=== PATIENT | female | born 1945 | race African-American/Black ===

== ENCOUNTER 2017-11-14 21:26 | Emergency (ER) | payer MEDICARE, MEDICAID ==
[~2017-11-14] VITALS: Ht 165.1 cm; Wt 79.0 kg
[~2017-11-14 21:26] MED LIST: ASPI-1159 PO; CEPH500C2 PO; FOLI-43 PO; FOLIC ACID PO; FURO-151 PO; GABA-290 PO; HUM10VIA6 SQ; HYDR25TA PO; INSU3INS8 SQ; KDUR20 PO; LOSA50TA20 PO; METF500T6 PO; NIFE60TA78 PO; RANI150T7 PO
[2017-11-14] MEDS ORDERED: HYDROCODONE/ACETAMINOPHEN 10/325MG TABLET PO ONE (23:00)
[2017-11-14] MEDS ORDERED: CEPHALEXIN 500MG CAPSULE PO ONE (23:00)
[2017-11-15] MEDS ORDERED: ALBUTEROL (0.083%) 2.5MG/3ML NEB HHN ONE (00:15)
[2017-11-15 01:03] VITALS: BP 165/98
== END 2017-11-15 01:36 | disposition home or self-care (01) ==
LOC: ER 21:26
DX: L03.115 Cellulitis of right lower limb (principal); J44.9 Chronic obstructive pulmonary disease, unspecified; E11.9 Type 2 diabetes mellitus without complications; I10 Essential (primary) hypertension; G62.9 Polyneuropathy, unspecified; F17.200 Nicotine dependence, unspecified, uncomplicated; Z96.653 Presence of artificial knee joint, bilateral; Z88.1 Allergy status to other antibiotic agents; Z88.2 Allergy status to sulfonamides; Z79.82 Long term (current) use of aspirin; Z79.899 Other long term (current) drug therapy
CPT/HCPCS: 94640; 99283; J7611

== ENCOUNTER 2017-11-18 19:10 | Emergency (ER) | payer MEDICARE, MEDICAID ==
[~2017-11-18] VITALS: Ht 162.6 cm; Wt 76.7 kg
[2017-11-18] MEDS ORDERED: ASPIRIN 325MG EC TABLET PO ONE (20:00)
[2017-11-18 20:02] LABS: BASOPHILS % 0.6 % (0.0-2.0); EOSINOPHILS % 3.5 % (0.0-5.0); HEMATOCRIT. 39.4 % (36.0-48.0); MEAN CORPUSCULAR HEMOGLOBIN 27.1 pg (28.0-32.0); MEAN CORPUSCULAR VOLUME 82.4 fL (81.0-99.0); MEAN PLATELET VOLUME 7.7 fl (7.4-10.4); MONOCYTES % 9.8 % (2.0-8.0); NEUTROPHILS % 69.1 % (40.0-76.0); PLATELET 283 x1000/uL (130-400); RED BLOOD CELL COUNT 4.78 mill/uL (4.2-5.4); RED CELL DISTRIBUTION WIDTH 15.9 % (11.6-14.6)
[2017-11-18 20:09] LABS: CHLORIDE 104 mEq/L (98-107)
[2017-11-18 20:13] LABS: ETHANOL BLOOD < 10 mg/dL
[2017-11-18 20:16] LABS: LDL CHOLESTEROL 100 mg/dL (5-100)
[2017-11-18 20:25] LABS: INR 1.1; PROTHROMBIN TIME 11.9 sec (9.4-11.6)
[2017-11-18] MEDS ORDERED: POTASSIUM CHLORIDE 20MEQ TABLET SR PO NR (20:30)
[2017-11-18 20:45] VITALS: BP 195/112
== END 2017-11-18 20:45 | disposition left against medical advice (07) ==
LOC: ER 19:10 → CANBEDREQ 22:20
DX: R47.01 Aphasia (principal); I16.0 Hypertensive urgency; E87.6 Hypokalemia; J44.9 Chronic obstructive pulmonary disease, unspecified; E11.9 Type 2 diabetes mellitus without complications; I10 Essential (primary) hypertension; Z88.8 Allergy status to other drugs, medicaments and biological substances; Z79.4 Long term (current) use of insulin; Z79.82 Long term (current) use of aspirin
CPT/HCPCS: 36415; 70450; 80053; 83605; 83721; 84484; 85025; 85610; 93005; 99291; G0482

== ENCOUNTER 2023-05-20 18:32 | Emergency (ER) | payer MEDICARE, MEDICAID ==
[~2023-05-20] VITALS: Ht 162.6 cm; Wt 64.0 kg
[~2023-05-20 18:32] MED LIST changes: +APIX5TAB MT; -ASPI-1159 PO; +ASPI-1497 PO; -CEPH500C2 PO; +FAMO20TA8 MT; -FOLIC ACID PO; -HYDR25TA PO; -LOSA50TA20 PO; +METF-414 PO; -METF500T6 PO; +NIFE-49 PO; -NIFE60TA78 PO; -RANI150T7 PO
[2023-05-20 18:38] VITALS: O2SAT 98
[2023-05-20 19:56] LABS: BASOPHILS % 0.5 % (0.0-2.0); EOSINOPHILS % 5.6 % (0.0-5.0); HEMATOCRIT. 36.5 % (36.0-48.0); HEMOGLOBIN. 12.3 g/dL (12.0-16.0); MEAN CORPUSCULAR HEMOGLOBIN 30.3 pg (28.0-32.0); MEAN CORPUSCULAR HGB CONC 33.8 g/dL (31.0-37.0); MEAN CORPUSCULAR VOLUME 89.8 fL (81.0-99.0); MEAN PLATELET VOLUME 7.1 fl (7.4-10.4); MONOCYTES % 10.6 % (2.0-8.0); NEUTROPHILS % 59.3 % (40.0-76.0); PLATELET 242 x1000/uL (130-400); RED BLOOD CELL COUNT 4.06 mill/uL (4.2-5.4); RED CELL DISTRIBUTION WIDTH 16.3 % (11.6-14.6); WHITE BLOOD COUNT 6.7 x1000/uL (4.5-11.0)
[2023-05-20 20:06] LABS: ALANINE AMINOTRANSFERASE 9 IU/L (10-49); ALBUMIN 3.8 g/dL (3.2-4.8); ASPARTATE AMINOTRANSFERASE 16 IU/L (<34); BILIRUBIN TOTAL 0.3 mg/dL (0.1-1.0); CALCIUM 9.6 mg/dL (8.7-10.4); CARBON DIOXIDE 18 mEq/L (21-32); CHLORIDE 114 mEq/L (98-107); CREATININE 1.7 mg/dL (0.6-1.0); GLUCOSE 108 mg/dL (70-105); POTASSIUM 4.7 mEq/L (3.5-5.1); PROTEIN TOTAL 7.3 g/dL (6.0-8.3); SODIUM 141 mEq/L (136-145); UREA NITROGEN BLOOD 59 mg/dL (9-23)
[2023-05-20] MEDS ORDERED: IPRATROPIUM/ALBUTEROL 0.5-3(2.5)MG/3ML NEB HHN PRN (22:45)
[2023-05-20] MEDS ORDERED: ACETAMINOPHEN 325MG TABLET PO PRN ×2 (22:45)
[2023-05-20] MEDS ORDERED: ONDANSETRON HCL 4MG/2ML INJ IV PRN (22:45)
[2023-05-20] MEDS ORDERED: CLONIDINE 0.1MG TABLET PO PRN (22:45)
[2023-05-20] MEDS ORDERED: IOHEXOL-350 100 ML BOTTLE ONE (23:00)
[2023-05-20 23:14] LABS: CHOLESTEROL 141 mg/dL (<200); FERRITIN 53 ng/mL (10-291); FOLIC ACID (FOLATE) SERUM 11.63 ng/mL (>5.38); HDL CHOLESTEROL 44 mg/dL (>65); IRON 47 ug/dL (50-170); LDL CHOLESTEROL 72 mg/dL (5-100); PHOSPHORUS 3.8 mg/dL (2.5-4.9); T4 FREE 1.05 ng/dL (0.89-1.76); THYROID STIMULATING HORMONE 0.74 uIU/mL (0.55-4.78); TOTAL IRON BINDING CAPACITY 224 ug/dl (250-425); TRIGLYCERIDE 97 mg/dL (0-150); TROPONIN I HIGH SENSITIVITY 8 ng/L (3.0-34); VITAMIN B12 SERUM 503 pg/mL (211-911)
[2023-05-20] MEDS ORDERED: HYDROCODONE/ACETAMINOPHEN 5/325MG TABLET PO ONE (23:30)
[2023-05-20 23:35] LABS: CLARITY URINE CLEAR (CLEAR); COLOR URINE YELLOW (YELLOW); GLUCOSE URINE NEGATIVE (NEGATIVE); KETONES URINE NEGATIVE (NEGATIVE); LEUKOCYTE ESTERASE URINE 1+ (NEGATIVE); NITRITE URINE NEGATIVE (NEGATIVE); OCCULT BLOOD URINE NEGATIVE (NEGATIVE); PH URINE 5.5 (4.5-8.0); PROTEIN URINE NEGATIVE (NEGATIVE); UROBILINOGEN URINE 0.2 E.U./dL (0.2-1.0)
[2023-05-20 23:52] LABS: RBC URINE NONE SEEN /hpf (0-2)
[2023-05-20 23:53] LABS: BACTERIA URINE NONE SEEN; SQUAMOUS EPITHELIAL CELL URINE FEW /lpf (RARE/1+)
[2023-05-21] MEDS ORDERED: MAGNESIUM 2 G PREMIX 50 ML IV NR (00:15)
[2023-05-21] MEDS ORDERED: PANTOPRAZOLE SODIUM 40 MG/VIAL IV NR (00:15)
[2023-05-21] MEDS ORDERED: ENOXAPARIN 30MG/0.3ML SYR SUBCUT SCH (00:15)
[2023-05-21] MEDS ORDERED: DEXTROSE 50% WATER 50ML SYRINGE IV PRN (00:15)
[2023-05-21] MEDS ORDERED: SODIUM CHLORIDE 0.45% 1,000 ML IV ONE (00:45)
[2023-05-21] MEDS ORDERED: HYDROCODONE/ACETAMINOPHEN 5/325MG TABLET PO NR (03:45)
[2023-05-21] MEDS: AMLODIPINE 5MG TABLET PO SCH ×2 (03:52→09:00)
[2023-05-21] MEDS: ASPIRIN 81MG EC TABLET PO SCH ×2 (03:54→09:00)
[2023-05-21] MEDS ORDERED: FUROSEMIDE 40MG TABLET PO SCH ×2 (06:00→09:00)
[2023-05-21] MEDS: LOSARTAN 50 MG TABLET PO SCH ×2 (06:00→09:00)
[2023-05-21] MEDS ORDERED: GABAPENTIN 100MG CAPSULE PO SCH (06:00)
[2023-05-21 06:01] LABS: HEMATOCRIT 35.1 % (36.0-48.0); HEMOGLOBIN 11.2 g/dL (12.0-16.0); MEAN CORPUSCULAR HEMOGLOBIN 29.4 pg (28.0-32.0); MEAN CORPUSCULAR HGB CONC 32.1 g/dL (31.0-37.0); MEAN CORPUSCULAR VOLUME 91.8 fL (81.0-99.0); PLATELET 253 x1000/uL (130-400); RED BLOOD CELL COUNT 3.82 mill/uL (4.2-5.4); RED CELL DISTRIBUTION WIDTH 16.2 % (11.6-14.6); WHITE BLOOD COUNT 7.4 x1000/uL (4.5-11.0)
[2023-05-21 06:08] VITALS: TEMP 98.4
[2023-05-21 06:12] LABS: CALCIUM 9.6 mg/dL (8.7-10.4); CREATININE 1.5 mg/dL (0.6-1.0); POTASSIUM 4.4 mEq/L (3.5-5.1)
[2023-05-21] MEDS ORDERED: PANTOPRAZOLE 40MG DR TABLET PO SCH (07:50)
[2023-05-21] MEDS ORDERED: INSULIN LISPRO 100 UNITS/ML SUBCUT SCH (08:20)
[2023-05-21] MEDS ORDERED: LOSARTAN 50 MG TABLET PO SCH (09:00)
[2023-05-21] MEDS ORDERED: BLOOD SUGAR DIAGNOSTIC STRIP TEST SCH (09:00)
[2023-05-21 09:21] VITALS: BP 134/59; PULSE 72; RESP 17
[2023-05-21] MEDS ORDERED: ATORVASTATIN CALCIUM 40MG TABLET PO SCH ×2 (21:00)
== END 2023-05-21 09:26 | disposition left against medical advice (07) ==
LOC: ER 18:32 → EDBEDREQ 05-21 00:01 → ER 05-21 09:26
DX: I12.9 Hypertensive chronic kidney disease with stage 1 through stage 4 chronic kidney disease, or unspecified chronic kidney disease (principal); E11.22 Type 2 diabetes mellitus with diabetic chronic kidney disease; N18.9 Chronic kidney disease, unspecified; Z88.9 Allergy status to unspecified drugs, medicaments and biological substances; Z98.890 Other specified postprocedural states
CPT/HCPCS: 99285; 74174; 93970; 71275; 71045; 80061; 80053; 81003; 82607; 82728; 82746; 83036; 84439; 83540; 83550; 83605; 83690; 83735; 84100; 84443; 85025; 85379; 84484; 36415 ×2; 93005; 96365; 76700; 96375; 80048; 85027; 96372; Q9967; J1650; J3475; C9113

== ENCOUNTER 2024-05-22 12:03 | Emergency (ER) | payer MEDICARE, MEDICAID ==
[~2024-05-22] VITALS: Ht 162.6 cm; Wt 72.0 kg
[2024-05-22 12:04] VITALS: BP 150/64; PULSE 77; RESP 14; TEMP 98.6; O2SAT 100
== END 2024-05-22 16:59 | disposition left against medical advice (07) ==
LOC: ER 12:03
DX: M79.2 Neuralgia and neuritis, unspecified (principal); R51.9 Headache, unspecified; J44.9 Chronic obstructive pulmonary disease, unspecified; E11.9 Type 2 diabetes mellitus without complications; I12.9 Hypertensive chronic kidney disease with stage 1 through stage 4 chronic kidney disease, or unspecified chronic kidney disease; N18.9 Chronic kidney disease, unspecified; Z53.21 Procedure and treatment not carried out due to patient leaving prior to being seen by health care provider; Z98.890 Other specified postprocedural states

== ENCOUNTER 2024-06-22 05:13 | Inpatient (IN) | payer MEDICARE, MEDICAID ==
[~2024-06-22] VITALS: Ht 157.5 cm; Wt 77.1 kg
[~2024-06-22 05:13] MED LIST changes: +DULA1.5P SQ; +HYDR100T11 PO; +SPIR50TA5 PO; +SULF1TAB48 MT
[2024-06-22 05:23] VITALS: RESP 28
[2024-06-22] MEDS: METHYLPREDNISOLONE SOD SUCC 125MG/2ML (ACT-O-VIAL) IV STA (05:26)
[2024-06-22] MEDS: ALBUTEROL (0.083%) 2.5MG/3ML NEB HHN SCH (05:30)
[2024-06-22] MEDS: IPRATROPIUM BROMIDE (0.02%) 0.5MG/2.5ML NEB HHN STA (06:07)
[2024-06-22] MEDS: ACETAMINOPHEN 325MG TABLET PO ONE (06:07)
[2024-06-22 06:26] LABS: BASOPHILS % 0.6 % (0.0-2.0); EOSINOPHILS % 3.3 % (0.0-5.0); HEMATOCRIT. 30.3 % (36.0-48.0); HEMOGLOBIN. 9.8 g/dL (12.0-16.0); LYMPHOCYTES % 39.8 % (20.0-50.0); MEAN CORPUSCULAR HEMOGLOBIN 30.2 pg (28.0-32.0); MEAN CORPUSCULAR HGB CONC 32.4 g/dL (31.0-37.0); MEAN CORPUSCULAR VOLUME 93.1 fL (81.0-99.0); MEAN PLATELET VOLUME 8.1 fl (7.4-10.4); MONOCYTES % 10.5 % (2.0-8.0); NEUTROPHILS % 45.8 % (40.0-76.0); PLATELET 331 x1000/uL (130-400); RED BLOOD CELL COUNT 3.26 mill/uL (4.2-5.4); RED CELL DISTRIBUTION WIDTH 15.6 % (11.6-14.6); WHITE BLOOD COUNT 13.1 x1000/uL (4.5-11.0)
[2024-06-22 06:30] LABS: CHLORIDE 112 mEq/L (98-107); POTASSIUM 4.2 mEq/L (3.5-5.1); SODIUM 139 mEq/L (136-145)
[2024-06-22 06:31] LABS: CARBON DIOXIDE 18 mEq/L (21-32)
[2024-06-22 06:32] LABS: CALCIUM 9.8 mg/dL (8.7-10.4)
[2024-06-22 06:36] LABS: CREATININE 1.3 mg/dL (0.6-1.0); GLUCOSE 182 mg/dL (70-105)
[2024-06-22 06:37] LABS: TROPONIN I HIGH SENSITIVITY 9 ng/L (3.0-34); UREA NITROGEN BLOOD 16 mg/dL (9-23)
[2024-06-22] MEDS ORDERED: AZITHROMYCIN 500MG/250ML 250 ML IV SCH (06:45)
[2024-06-22] MEDS: AZITHROMYCIN 500MG/250ML 250 ML IV NR (07:07)
[2024-06-22 08:32] VITALS: RESP 17
[2024-06-22] MEDS ORDERED: DOCUSATE SODIUM 100MG CAPSULE PO PRN (09:30)
[2024-06-22] MEDS ORDERED: GUAIFENESIN 200MG/10ML SUGAR FREE UDC PO PRN (09:30)
[2024-06-22] MEDS ORDERED: ACETAMINOPHEN 325MG TABLET PO PRN ×2 (09:30)
[2024-06-22] MEDS ORDERED: MAGNESIUM/ALUMINUM HYDROXIDE/SIMETHICONE 30ML UDC PO PRN (09:30)
[2024-06-22] MEDS ORDERED: IPRATROPIUM/ALBUTEROL 0.5-3(2.5)MG/3ML NEB HHN PRN (09:30)
[2024-06-22] MEDS ORDERED: ONDANSETRON HCL 4MG/2ML INJ IV PRN (09:30)
[2024-06-22] MEDS: METHYLPREDNISOLONE SOD SUCC 40MG/ML (ACT-O-VIAL) IV SCH (10:50)
[2024-06-22] MEDS: ENOXAPARIN 40MG/0.4ML SYR SUBCUT SCH (10:54)
[2024-06-22 11:35] VITALS: RESP 29
[2024-06-22] MEDS: IPRATROPIUM/ALBUTEROL 0.5-3(2.5)MG/3ML NEB HHN SCH (11:35)
[2024-06-22] MEDS: BUDESONIDE 0.5MG/2ML NEB HHN SCH (11:35)
[2024-06-22] MEDS ORDERED: DEXTROSE 50% WATER 50ML SYRINGE IV PRN (11:45)
[2024-06-22 12:58] LABS: BG BASE EXCESS -5.2 mmol/L (-2.0-3.0); BG DEOXYHEMOGLOBIN 0.2 % (0.0-5.0); BG FRACTION INSPIRED OXYGEN 100; BG HCO3 ACT 18.3 mmol/L (21.0-28.0); BG METHEMOGLOBIN 0.3 % (0.5-1.5); BG OXYGEN SATURATION 99.8 % (94.0-98.0); BG OXYHEMOGLOBIN 99.5 % (94.0-98.0); BG PCO2 28.7 mmHg (32.0-45.0); BG PH 7.422 (7.350-7.450); BG PO2 309.9 mmHg (83.0-108.0); BG SAMPLE SITE LEFT RADIAL; BG TOTAL HEMOGLOBIN 9.6 g/dL (12.0-16.0); BG TOTAL RESPIRATORY RATE 24 b/min; BG VENT MODE MASK - BIPAP
[2024-06-22] MEDS: FERROUS SULFATE 325MG TABLET PO SCH (13:00)
[2024-06-22] MEDS: CLONIDINE 0.1MG TABLET PO PRN (14:28)
[2024-06-22 14:40] LABS: TROPONIN I HIGH SENSITIVITY 8 ng/L (3.0-34)
[2024-06-22] MEDS ORDERED: HYDRALAZINE HCL 25MG TABLET PO SCH (14:45)
[2024-06-22] MEDS: BLOOD SUGAR DIAGNOSTIC STRIP TEST SCH (15:07)
[2024-06-22] MEDS: INSULIN LISPRO 100 UNITS/ML SUBCUT SCH (15:11)
[2024-06-22] MEDS: GABAPENTIN 300MG CAPSULE PO SCH (15:32)
[2024-06-22 16:30] VITALS: PULSE 76; RESP 20; O2SAT 100
[2024-06-22] MEDS ORDERED: NALOXONE HCL 0.4MG/ML VIAL IV PRN (18:00)
[2024-06-22] MEDS: HYDRALAZINE 20MG/ML VIAL IV PRN (18:19)
[2024-06-22] MEDS: HYDROCODONE/ACETAMINOPHEN 10/325MG TABLET PO PRN (18:20)
[2024-06-23] MEDS: FAMOTIDINE 20MG TABLET PO SCH (00:53)
[2024-06-23] MEDS: APIXABAN 5 MG TABLET PO SCH (00:54)
[2024-06-23 04:05] VITALS: PULSE 68; RESP 18; O2SAT 98
[2024-06-23] MEDS ORDERED: AZITHROMYCIN 500MG/250ML 250 ML IV SCH (08:00)
[2024-06-23] MEDS ORDERED: HYDRALAZINE HCL 100MG TABLET PO SCH ×2 (08:00)
[2024-06-23] MEDS ORDERED: SPIRONOLACTONE 50MG TABLET PO SCH (08:00)
[2024-06-23] MEDS ORDERED: FUROSEMIDE 40MG TABLET PO SCH (09:00)
[2024-06-23] MEDS ORDERED: ASPIRIN 81MG EC TABLET PO SCH (09:00)
[2024-06-23] MEDS ORDERED: GABAPENTIN 300MG CAPSULE PO SCH (09:00)
[2024-06-23] MEDS ORDERED: FOLIC ACID 1MG TABLET PO SCH (09:00)
[2024-06-23] MEDS ORDERED: POTASSIUM CHLORIDE 20MEQ TABLET SR PO SCH (09:00)
[2024-06-23 10:04] LABS: HEMATOCRIT 26.8 % (36.0-48.0); HEMOGLOBIN 8.5 g/dL (12.0-16.0); MEAN CORPUSCULAR HEMOGLOBIN 29.9 pg (28.0-32.0); MEAN CORPUSCULAR HGB CONC 31.6 g/dL (31.0-37.0); MEAN CORPUSCULAR VOLUME 94.6 fL (81.0-99.0); PLATELET 249 x1000/uL (130-400); RED BLOOD CELL COUNT 2.83 mill/uL (4.2-5.4); WHITE BLOOD COUNT 7.3 x1000/uL (4.5-11.0)
[2024-06-23 10:19] LABS: CHLORIDE 112 mEq/L (98-107); POTASSIUM 4.2 mEq/L (3.5-5.1); SODIUM 140 mEq/L (136-145)
[2024-06-23 10:20] LABS: CALCIUM 8.9 mg/dL (8.7-10.4); CARBON DIOXIDE 21 mEq/L (21-32)
[2024-06-23 10:25] LABS: CREATININE 1.3 mg/dL (0.6-1.0); GLUCOSE 160 mg/dL (70-105); UREA NITROGEN BLOOD 22 mg/dL (9-23)
[2024-06-23 10:27] LABS: PHOSPHORUS 3.3 mg/dL (2.5-4.9)
[2024-06-23 11:00] VITALS: BP 146/77; PULSE 58; RESP 18; TEMP 36.6
[2024-06-23] MEDS ORDERED: CARV6.2548 (11:17)
[2024-06-23] MEDS ORDERED: HYDR100T31 (11:17)
[2024-06-23] MEDS ORDERED: NIFE-32 (11:17)
[2024-06-23] MEDS ORDERED: LOSA50TA41 (11:17)
[2024-06-23] MEDS ORDERED: SULF1TAB44 (11:17)
[2024-06-23] MEDS ORDERED: HYDR-4009 (11:17)
[2024-06-23] MEDS ORDERED: GABA-529 (11:17)
[2024-06-23] MEDS ORDERED: FLUT1AER (11:17)
[2024-06-23 11:56] VITALS: BP 146/77; PULSE 58; RESP 18; TEMP 36.6; O2SAT 99
[2024-06-23 16:05] VITALS: BP 146/77; PULSE 58; TEMP 97.5; O2SAT 99
[2024-06-23 16:26] VITALS: BP 135/79; PULSE 64; RESP 18; TEMP 36.7; O2SAT 99
== END 2024-06-23 17:30 | disposition home or self-care (01) | DRG 177 ==
LOC: ER 05:13 → EDBEDREQ 05:21 → EDBEDREQTM 06:56 → EDBEDREQ 06:56 → EDBEDREQSVC 06-23 06:57 → ER 06-23 10:34 → 7WST 06-23 11:21
PROVIDERS: ADMIT Hospitalist; ATTEND Hospitalist
PROC: 5A09357 Assistance with Respiratory Ventilation, Less than 24 Consecutive Hours, Continuous Positive Airway Pressure (ICD-10-PCS; principal; 2024-06-22)
DX: J69.0 Pneumonitis due to inhalation of food and vomit (principal); J96.01 Acute respiratory failure with hypoxia; J44.1 Chronic obstructive pulmonary disease with (acute) exacerbation; I50.42 Chronic combined systolic (congestive) and diastolic (congestive) heart failure; E87.20 Acidosis, unspecified; D64.9 Anemia, unspecified; D72.829 Elevated white blood cell count, unspecified; E11.9 Type 2 diabetes mellitus without complications; E87.8 Other disorders of electrolyte and fluid balance, not elsewhere classified; I11.0 Hypertensive heart disease with heart failure; S31.000A Unspecified open wound of lower back and pelvis without penetration into retroperitoneum, initial encounter; F17.210 Nicotine dependence, cigarettes, uncomplicated; Z96.659 Presence of unspecified artificial knee joint; Z79.01 Long term (current) use of anticoagulants; Z79.4 Long term (current) use of insulin; Z79.84 Long term (current) use of oral hypoglycemic drugs; Z79.899 Other long term (current) drug therapy; Z86.718 Personal history of other venous thrombosis and embolism; Z86.73 Personal history of transient ischemic attack (TIA), and cerebral infarction without residual deficits; X58.XXXA Exposure to other specified factors, initial encounter; Y93.89 Activity, other specified; Y92.89 Other specified places as the place of occurrence of the external cause; Y99.8 Other external cause status
CPT/HCPCS: 36415; 36600; 71045; 80048; 82375; 82805; 82962; 83605; 83735; 84100; 84145; 84484; 85025; 85027; 93005; 93970; 94640; 94660; 99291; J0360; J0456; J1650; J1815; J2919; J2920; J7626